=== PATIENT | female | born 1985 | race Caucasian/White ===

== ENCOUNTER 2018-11-01 18:37 | Emergency (ER) | payer OTHER, MEDICAID ==
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
[2018-11-01] MEDS ORDERED: IBUPROFEN 800 MG TABLET PO ONE (19:58)
[2018-11-01] MEDS ORDERED: CYCLOBENZAPRINE HCL 10 MG TABLET PO ONE (19:58)
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
[2018-11-01 20:19] VITALS: BP 143/97
== END 2018-11-01 20:20 | disposition home or self-care (01) ==
LOC: ER 18:37
DX: S16.1XXA Strain of muscle, fascia and tendon at neck level, initial encounter (principal); M54.2 Cervicalgia; M54.5 Low back pain; V43.62XA Car passenger injured in collision with other type car in traffic accident, initial encounter; W22.12XA Striking against or struck by front passenger side automobile airbag, initial encounter; F17.210 Nicotine dependence, cigarettes, uncomplicated
CPT/HCPCS: 99283; 72125; L0120

== ENCOUNTER 2019-05-07 17:56 | Inpatient (IN) | payer SELFPAY ==
[2019-05-07] MEDS ORDERED: METOCLOPRAMIDE HCL ORAL SOLN 10 MG/10 ML UDCUP PO ONE (18:19)
[2019-05-07] MEDS ORDERED: MAG HYDROX/AL HYDROX/SIMETH SUSP 30 ML UDCUP PO ONE (18:19)
[2019-05-07] MEDS ORDERED: LIDOCAINE 2% VISCOUS SOLN 20 ML UDCUP PO ONE (18:19)
--- NOTE | 2019-05-07 18:19 | ER Document Report ---
ED Medical Screen (RME) - General Chief Complaint: Chest Pain Stated Complaint: CHEST PAIN Time Seen by Provider: 05/07/19 18:17 Primary Care Provider: SONAL YEPEZ MD [Primary Care Provider] - Follow up as needed Mode of Arrival: Wheelchair Information source: Patient Notes: 34-year-old female presented to ED for complaint of chest pain midsternum through to the back. She states this started about an hour ago. She states she took something for what she thought was heartburn but it has not helped. Patient is alert oriented respirations regular nonlabored speaking in full sentences. She states she does not smoke drinks maybe once a month and no use of illicit drugs. She states she had a for her twins 5 years ago no other surgeries no medical history. TRAVEL OUTSIDE OF THE [place] IN LAST 30 DAYS: No - Related Data Allergies/Adverse Reactions: No Known Allergies Allergy (Verified 11/01/18 18:38) Past Medical History Renal/ Medical History: Denies: Hx Peritoneal Dialysis Psychiatric Medical History: Reports: Hx Depression Past Surgical History: Reports: Hx Section - Immunizations Hx Diphtheria, Pertussis, Tetanus Vaccination: Yes Physical Exam - Vital signs Vitals: Temp Pulse Resp BP Pulse Ox 98.4 F 112 H 26 H 149/96 H 97 05/07/19 18:14 05/07/19 18:14 05/07/19 18:14 05/07/19 18:14 05/07/19 18:14 Course - Vital Signs Vital signs: Temp Pulse Resp BP Pulse Ox 98.4 F 112 H 26 H 149/96 H 97 05/07/19 18:14 05/07/19 18:14 05/07/19 18:14 05/07/19 18:14 05/07/19 18:14 Doctor's Discharge - Discharge Referrals: SONAL YEPEZ MD [Primary Care Provider] - Follow up as needed
[2019-05-07] MEDS ORDERED: ASPIRIN 81 MG TABLET, CHEWABLE PO ONE (18:20)
--- NOTE | 2019-05-07 18:54 | RADIOLOGY REPORT (SQ) ---
EXAM DESCRIPTION: CHEST 2 VIEWS COMPLETED DATE/TIME: 05/07/2019 6:42 pm REASON FOR STUDY: Chest pain through to back COMPARISON: None. EXAM PARAMETERS: NUMBER OF VIEWS: two views TECHNIQUE: Digital Frontal and Lateral radiographic views of the chest acquired. RADIATION DOSE: NA LIMITATIONS: none FINDINGS: LUNGS AND PLEURA: No opacities, masses or pneumothorax. No pleural effusion. MEDIASTINUM AND HILAR STRUCTURES: No masses or contour abnormalities. HEART AND VASCULAR STRUCTURES: Heart normal size. No evidence for failure. BONES: No acute findings. HARDWARE: None in the chest. OTHER: No other significant finding. IMPRESSION: NO ACUTE RADIOGRAPHIC FINDING IN THE CHEST. TECHNICAL DOCUMENTATION: JOB ID: [id number] [employer]- All Rights Reserved Reading location - IP/workstation name: [email or web address]
[2019-05-07 19:29] LABS: ABSOLUTE BASOPHILS # (AUTO) 0.1 10^3/uL (0.0-0.2); ABSOLUTE EOSINOPHILS # (AUTO) 0.1 10^3/uL (0.0-0.6); ABSOLUTE LYMPHOCYTES (AUTO) 3.2 10^3/uL (0.5-4.7); ABSOLUTE MONOCYTES (AUTO) 0.9 10^3/uL (0.1-1.4); ABSOLUTE NEUT (AUTO) 13.6 10^3/uL (1.7-8.2); BASOPHILS % (AUTO) 0.6 % (0-2); EOSINOPHILS % (AUTO) 0.5 % (0-6); HEMATOCRIT 46.2 % (36.0-47.0); HEMOGLOBIN 15.8 g/dL (12.0-15.5); LYMPHOCYTES % (AUTO) 17.8 % (13-45); MEAN CORPUSCULAR HEMOGLOBIN 30.5 pg (27.0-33.4); MEAN CORPUSCULAR HGB CONC 34.2 g/dL (32.0-36.0); MEAN CORPUSCULAR VOLUME 89 fl (80-97); MONOCYTES % (AUTO) 5.2 % (3-13); PLATELET COUNT 410 10^3/uL (150-450); RED BLOOD COUNT 5.19 10^6/uL (3.72-5.28); RED CELL DISTRIBUTION WIDTH 13.5 % (11.5-14.0); SEGMENTED NEUTROPHILS % (AUTO) 75.9 % (42-78); TOTAL CELLS COUNTED % (AUTO) 100 %
[2019-05-07 19:36] LABS: ALKALINE PHOSPHATASE 77 U/L (38-126); ANION GAP 14 (5-19); ASPARTATE AMINO TRANSFERASE 28 U/L (14-36); BILIRUBIN,DIRECT 0.1 mg/dL (0.0-0.4); BILIRUBIN,TOTAL 0.3 mg/dL (0.2-1.3); BLOOD UREA NITROGEN 15 mg/dL (7-20); CALCIUM 10.5 mg/dL (8.4-10.2); CARBON DIOXIDE 24 mmol/L (22-30); CHLORIDE 105 mmol/L (98-107); GLUCOSE 106 mg/dL (75-110); TOTAL PROTEIN 9.2 g/dL (6.3-8.2)
[2019-05-07] MEDS ORDERED: NORMAL SALINE 1000 ML 1,000 ML IV ONE (20:07)
[2019-05-07] MEDS ORDERED: ONDANSETRON HCL INJ/PF 4 MG/2 ML SDV IV ONE (20:19)
[2019-05-07] MEDS ORDERED: HYDROMORPHONE HCL INJ/PF 2 MG/ML AMPULE IV ONE (20:19)
--- NOTE | 2019-05-07 20:24 | ER Document Report ---
ED General - General Chief Complaint: Chest Pain Stated Complaint: CHEST PAIN Time Seen by Provider: 05/07/19 18:17 Primary Care Provider: SONAL YEPEZ MD [NO LOCAL MD] - Follow up as needed Mode of Arrival: Wheelchair Information source: Patient TRAVEL OUTSIDE OF THE [place] IN LAST 30 DAYS: No - HPI Severity: Severe Relieved by: Denies Similar symptoms previously: No Notes: This is a 34-year-old female who presents to the emergency department complain ing of epigastric and right upper quadrant pain x2 hours. Patient states the pain started while she was eating dinner tonight. Patient states that she had her significant other get her something for heartburn ([place]arnie[place]) which did not help her symptoms. Patient states the pain is sharp and radiates into her back. Patient states that she has not had pain like this in the past and does not think it is her heartburn. Patient denies diaphoresis, chest pain, jaw pain, arm pain, dyspnea. Patient denies dysuria, hematuria. Differential diagnosis: Reflux esophagitis, biliary colic, cholecystitis, cholelithiasis, choledocholithiasis, peptic ulcer disease, pancreatitis, ACS, perforated peptic ulcer. Medical decision-making: Will treat the patient's pain, check CBC CMP, troponin, lipase, urine, urine , gallbladder ultrasound. - Related Data Allergies/Adverse Reactions: No Known Allergies Allergy (Verified 11/01/18 18:38) Past Medical History - General Information source: Patient - Social History Smoking Status: Never Smoker Frequency of alcohol use: None Drug Abuse: None Family History: Reviewed & Not Pertinent Patient has suicidal ideation: No Patient has homicidal ideation: No - Past Medical History Cardiac Medical History: Reports: None Pulmonary Medical History: Reports: None EENT Medical History: Reports: None Neurological Medical History: Reports: None Endocrine Medical History: Reports: None Renal/ Medical History: Reports: None. Denies: Hx Peritoneal Dialysis Malignancy Medical History: Reports: None GI Medical History: Reports: Hx Gastroesophageal Reflux Disease, Other Musculoskeletal Medical History: Reports None Skin Medical History: Reports None Psychiatric Medical History: Reports: Hx Depression Traumatic Medical History: Reports: None Infectious Medical History: Reports: None Past Surgical History: Reports: Hx Section - Immunizations Hx Diphtheria, Pertussis, Tetanus Vaccination: Yes Review of Systems - Review of Systems Constitutional: See HPI EENT: No symptoms reported Cardiovascular: No symptoms reported Gastrointestinal: See HPI Genitourinary: No symptoms reported Female Genitourinary: No symptoms reported Skin: No symptoms reported Hematologic/Lymphatic: No symptoms reported Neurological/Psychological: No symptoms reported -: Yes All other systems reviewed and negative Physical Exam - Vital signs Vitals: Temp Pulse Resp BP Pulse Ox 98.4 F 112 H 26 H 149/96 H 97 05/07/19 18:14 05/07/19 18:14 05/07/19 18:14 05/07/19 18:14 05/07/19 18:14 - Notes Notes: PHYSICAL EXAMINATION: GENERAL: Patient appears to be in acute distress secondary to abdominal pain. HEAD: Atraumatic, normocephalic. EYES: Pupils equal round and reactive to light, extraocular movements intact, sclera anicteric, conjunctiva are normal. ENT: nares patent, oropharynx clear without exudates. Moist mucous membranes. NECK: Normal range of motion, supple without lymphadenopathy LUNGS: Breath sounds clear to auscultation bilaterally and equal. No wheezes rales or rhonchi. HEART: Tachycardia without clicks, murmurs, rubs, gallops. ABDOMEN: Soft, tender to palpation right upper quadrant (positive Hunter sign), normoactive bowel sounds. No guarding, no rebound. No masses appreciated. EXTREMITIES: Normal range of motion, no pitting or edema. No cyanosis. NEUROLOGICAL: No focal neurological deficits. Moves all extremities spontaneously and on command. PSYCH: Anxious SKIN: Warm, Dry, normal turgor, no rashes or lesions noted. Course - Re-evaluation Re-evalutation: 05/07/19 21:34 Patient was reexamined by this MD at 2125 hrs. Patient was informed of the results of her lab work and gallbladder ultrasound. This MD recommended that a surgeon be consulted given the patient's elevated white count positive Hunter sign and gallbladder ultrasound findings. Patient states that she was agreeable to being seen by surgeon for further evaluation of her symptoms. was consulted at 2131 hours; he is currently in the OR but stated he would come see the pt in ED once he was done with surgery. - Vital Signs Vital signs: Temp Pulse Resp BP Pulse Ox 99.1 F 68 16 131/76 H 98 05/07/19 22:12 05/07/19 22:12 05/07/19 22:12 05/07/19 22:12 05/07/19 22:12 05/07/19 21:36 Vital signs reviewed by this MD. - Laboratory Result Diagrams: 05/07/19 19:10 05/07/19 19:10 Laboratory results interpreted by me: 05/07/19 05/07/19 05/07/19 19:10 19:10 22:20 WBC 18.0 H Hgb 15.8 H Absolute Neuts (auto) 13.6 H Calcium 10.5 H Total Protein 9.2 H Urine Protein 30 H Urine Ketones TRACE H Leukocyte Esterase Rfl SMALL H 05/07/19 21:36 Laboratory results reviewed by this MD. - Diagnostic Test Radiology reviewed: Reports reviewed - EKG Interpretation by Me Additional EKG results interpreted by me: 05/07/19 20:31 EKG performed on 05/07/2019 at 18/3 hours was interpreted by this MD. Findings: Patient has a sinus rhythm with a rate of 57, normal axis, pes preceding QRS complexes, QRS complexes appear narrow, there is no evidence of ST segment elevation or depression in a pattern to suggest acute ischemia or infarction. Impression sinus bradycardia with no overt acute abnormality seen - Consults DR. PAUL BAKER, SURGICALIST Time consulted: 21:31 Reason for consultation: 05/07/19 21:33 + HUNTER'S SIGN, WBC 18, +GALLSTONES ON U/S, +SONOGRAPHIC MURHPHY'S SIGN Consulted provider: will come to ER Discharge - Discharge Clinical Impression: Leukocytosis Cholelithiasis Qualifiers: Cholelithiasis location: gallbladder Cholecystitis acuity: acute Condition: Good Disposition: ADMITTED OBSERVATION Admitting Provider: SURGICALIST (SAMUEL) Unit Admitted: Surgical Floor Referrals: SONAL YEPEZ MD [NO LOCAL MD] - Follow up as needed
--- NOTE | 2019-05-07 20:26 | RADIOLOGY REPORT (SQ) ---
EXAM DESCRIPTION: US ABDOMEN LIMITED COMPLETED DATE/TME: 05/07/2019 18:21 CLINICAL HISTORY: 34 years, Female, Chest pain through to back COMPARISON: None. TECHNIQUE: Axial 2-D grayscale images of the abdomen were acquired. Doppler was utilized. LIMITATIONS: Suboptimal study secondary to extensive bowel gas artifact. FINDINGS: Pancreas is obscured secondary to overlying bowel gas artifact. The visualized portions of the pancreatic head appear normal. Proximal abdominal aorta measures 2.4 cm in AP diameter. The mid to distal abdominal aorta was obscured. Liver measures 15.7 cm in length. It appears normal in echogenicity. Antegrade flow is documented within the main portal vein. Gallbladder wall thickness measures 2 mm. Echogenic material is noted about the gallbladder lumen, several of which demonstrate posterior acoustic shadowing indicating cholelithiasis. Sonographic Hunter sign was positive. Common bile duct diameter measures 4 mm. Right kidney measures 11.4 x 5.3 x 5.5 cm in size. The right renal pelvis appears slightly dilated measuring 1.2 cm in diameter. IMPRESSION: Cholelithiasis/gallbladder sludge with positive sonographic Hunter sign, overall nonspecific in the absence of significant gallbladder wall thickening or common bile duct dilatation. If there is continued clinical concern for cholecystitis, consider HIDA scan. Slightly dilated right renal pelvis measuring 1.2 cm in diameter. copyright 2010 [employer]- All Rights Reserved
[2019-05-07 22:46] LABS: APPEARANCE,URINE TURBID; BILIRUBIN,URINE NEGATIVE (NEGATIVE); COLOR,URINE YELLOW; GLUCOSE, URINE NEGATIVE (NEGATIVE); KETONES,URINE TRACE mg/dL (NEGATIVE); PROTEIN,URINE 30 mg/dL (NEGATIVE); URINE SPECIFIC GRAVITY 1.025; UROBILINOGEN,URINE NEGATIVE mg/dL (<2.0)
[2019-05-07] MEDS ORDERED: POTASSI CL 20 MEQ/D5-1/2NS 1L 1,000 ML IV PRN (23:16)
[2019-05-07] MEDS ORDERED: ONDANSETRON HCL INJ/PF 4 MG/2 ML SDV IV PRN (23:16)
--- NOTE | 2019-05-07 23:16 | PDOC H&P ---
History of Present Illness Admission Date/PCP: SHARONA SUH MD right sided abdominal pain History of Present Illness: BALTAZAR BARRY is a 34 year old female This is a 34-year-old female who presents to the emergency department complaining of epigastric and right upper quadrant pain x2 hours. Patient states the pain started while she was eating dinner tonight. Patient states that she had her significant other get her something for heartburn (Marnie- Corona) which did not help her symptoms. Patient states the pain is sharp and radiates into her back. Patient states that she has not had pain like this in the past and does not think it is her heartburn. Patient denies diaphoresis, chest pain, jaw pain, arm pain, dyspnea. Patient denies dysuria, hematuria Past Medical History Cardiac Medical History: Reports: None Pulmonary Medical History: Reports: None Denies: Asthma, Bronchitis, Chronic Obstructive Pulmonary Disease (COPD), Intubation, Pneumonia, Respiratory Failure, Sleep Apnea, Tuberculosis, Other EENT Medical History: Reports: None Denies: Cataracts, Eyes, Ears, Nose, Throat, Other Neurological Medical History: Reports: None Denies: Hemorrhagic CVA, Ischemic CVA, Migraine, Multiple Sclerosis, Seizures, Other Endocrine Medical History: Reports: None Denies: Diabetes Mellitus Type 1, Diabetes Mellitus Type 2, Gestational Diabetes, Hyperthyroidism, Hypothyroidism, Obesity, Other Renal/ Medical History: Reports: None Denies: Chronic Kidney Disease, End Stage Renal Disease, Nephrolithiasis, Other Malignancy Medical History: Reports: None Denies: Bone Cancer, Brain Cancer, Breast Cancer, Cervical Cancer, Colorectal Cancer, Leukemia, Liver Cancer, Lung Cancer, Lymphoma, Ovarian Cancer, Pancreatic Cancer, Renal (Kidney) Cancer, Skin Cancer, Other GI Medical History: Reports: Gastroesophageal Reflux Disease, Other Denies: None, Cirrhosis, Crohn's Disease, Diverticulitis, Hepatitis, Hiatal Hernia, Peptic Ulcer Disease, Ulcerative Colitis Musculoskeltal Medical History: Reports: None Denies: Arthritis, Fibromyalgia, Gout, Other Skin Medical History: Reports: None Denies: Eczema, Psoriasis, Other Psychiatric Medical History: Reports: Depression Denies: None, Alcohol Dependency, Attention Deficit Hyperactivity Disorder, Bipolar Disorder, Dementia, General Anxiety Disorder, Personality Disorder, Post Traumatic Stress Disorder, Schizoaffective Disorder, Substance Abuse, Tobacco Dependency, Other Traumatic Medical History: Reports: None Infectious Medical History: Reports: None Past Surgical History Past Surgical History: Reports: Section Social History Smoking Status: Never Smoker Frequency of Alcohol Use: Occasional Hx Recreational Drug Use: No Family History Family History: Reviewed & Not Pertinent Parental Family History Reviewed: No Children Family History Reviewed: NA Sibling(s) Family History Reviewed.: NA Medication/Allergy Home Medications: Celecoxib 200 mg PO DAILY 05/27/16 Diazepam 5 mg PO Q6 PRN 05/27/16 Losartan Potassium 25 mg PO DAILY 05/27/16 Cephalexin Monohydrate [Keflex 500 mg Capsule] 500 mg PO TID #30 capsule 05/29/16 Fluconazole [Diflucan] 150 mg PO ONCE PRN #1 tablet 05/29/16 Oxycodone HCl/Acetaminophen [Percocet 5-325 mg Tablet] 2 tab PO Q4HP PRN #20 ta blet 05/29/16 Cyclobenzaprine HCl [Flexeril 5 mg Tablet] 5 mg PO TID #15 tablet 11/01/18 Ibuprofen [Motrin 800 mg Tablet] 800 mg PO TID #20 tablet 11/01/18 Oxycodone HCl/Acetaminophen [Percocet 5-325 mg Tablet] 1 tab PO ASDIR PRN #10 tablet 11/01/18 Allergies/Adverse Reactions: No Known Allergies Allergy (Verified 11/01/18 18:38) Review of Systems Constitutional: PRESENT: fatigue Eyes: ABSENT: as per HPI, visual disturbances, other Ears: ABSENT: as per HPI, hearing changes, other Nose, Mouth, and Throat: ABSENT: as per HPI, headache(s), mouth pain, sore throat, vertigo, other Cardiovascular: ABSENT: as per HPI, chest pain, dyspnea on exertion, edema, orthropnea, palpitations, other Respiratory: ABSENT: as per HPI, cough, dyspnea, hemoptysis, sputum, other Gastrointestinal: ABSENT: as per HPI, abdominal pain, bloating, coffee ground emesis, constipation, diarrhea, dysphagia, heartburn, hematemesis, hematochezia, melena, nausea, vomiting, other Musculoskeletal: ABSENT: as per HPI, back pain, deformity, joint swelling, muscle weakness, other Integumentary: ABSENT: as per HPI, diaphoresis, erythema, lesions, pruritus, rash, wounds, other Neurological: ABSENT: as per HPI, abnormal gait, abnormal movements, abnormal speech, confusion, convulsions, dizziness, focal weakness, frequent falls, lack of coordination, memory loss, numbness, paresthesias, restless legs, syncope, tingling, tremor(s), vertigo, weakness, other Psychiatric: ABSENT: as per HPI, anxiety, depression, hallucinations, homidical ideation, suicidal ideation, other Endocrine: ABSENT: as per HPI, cold intolerance, flushing, heat intolerance, menstrual abnormalities, polydipsia, polyphagia, polyuria, other Hematologic/Lymphatic: ABSENT: as per HPI, easy bleeding, easy bruising, lymphadenopathy, other Allergic/Immunologic: ABSENT: as per HPI, seasonal rhinorrhea, other Physical Exam Vital Signs: Temp Pulse Resp BP Pulse Ox 99.1 F 68 16 131/76 H 98 05/07/19 22:12 05/07/19 22:12 05/07/19 22:12 05/07/19 22:12 05/07/19 22:12 Intake & Output 05/06/19 05/07/19 05/08/19 06:59 06:59 06:59 Intake Total 1000 Balance 1000 Weight 77.111 kg General appearance: PRESENT: mild distress Head exam: PRESENT: normocephalic Eye exam: PRESENT: EOMI Ear exam: PRESENT: normal external ear exam Mouth exam: PRESENT: moist Neck exam: PRESENT: full ROM Respiratory exam: PRESENT: clear to auscultation so Cardiovascular exam: PRESENT: RRR Pulses: PRESENT: normal radial pulses, normal femoral pulses Vascular exam: PRESENT: normal capillary refill GI/Abdominal exam: PRESENT: soft Rectal exam: PRESENT: deferred Extremities exam: PRESENT: full ROM Musculoskeletal exam: PRESENT: full ROM Neurological exam: PRESENT: alert, awake, oriented to person, oriented to place Psychiatric exam: PRESENT: appropriate affect Skin exam: PRESENT: dry Results Laboratory Results: 05/07/19 19:10 05/07/19 19:10 05/07/19 05/07/19 05/07/19 19:10 19:10 19:10 WBC 18.0 H RBC 5.19 Hgb 15.8 H Hct 46.2 MCV 89 MCH 30.5 MCHC 34.2 RDW 13.5 Plt Count 410 Seg Neutrophils % 75.9 Sodium 142.6 Potassium 4.0 Chloride 105 Carbon Dioxide 24 Anion Gap 14 BUN 15 Creatinine 0.74 Est GFR ( Amer) > 60 Glucose 106 Calcium 10.5 H Total Bilirubin 0.3 AST 28 Alkaline Phosphatase 77 Total Protein 9.2 H Albumin 5.0 Lipase 121.6 Serum HCG, Qual Cancelled Urine Color Urine Appearance Urine pH Ur Specific [place] Urine Protein Urine Glucose (UA) Urine Ketones Urine Blood Urine RBC (Auto) 05/07/19 22:20 WBC RBC Hgb Hct MCV MCH MCHC RDW Plt Count Seg Neutrophils % Sodium Potassium Chloride Carbon Dioxide Anion Gap BUN Creatinine Est GFR ( Amer) Glucose Calcium Total Bilirubin AST Alkaline Phosphatase Total Protein Albumin Lipase Serum HCG, Qual Urine Color YELLOW Urine Appearance TURBID Urine pH 7.0 Ur Specific [place] 1.025 Urine Protein 30 H Urine Glucose (UA) NEGATIVE Urine Ketones TRACE H Urine Blood NEGATIVE Urine RBC (Auto) 10 05/07/19 19:10 Troponin I < 0.012 Impressions: Abdomen Ultrasound 05/07/19 18:21 IMPRESSION: Cholelithiasis/gallbladder sludge with positive sonographic Hunter sign, overall nonspecific in the absence of significant gallbladder wall thickening or common bile duct dilatation. If there is continued clinical concern for cholecystitis, consider HIDA scan. Slightly dilated right renal pelvis measuring 1.2 cm in diameter. copyright 2010 [employer]- All Rights Reserved Chest X-Ray 05/07/19 18:21 IMPRESSION: NO ACUTE RADIOGRAPHIC FINDING IN THE CHEST. Assessment & Plan - Diagnosis (1) Cholelithiasis Qualifiers: Cholelithiasis location: gallbladder Cholecystitis acuity: acute - Plan Summary Plan Summary: Impression biliary colic versus early cholecystitis with a white count of 18,000 Patient last ate a large meal about 6 hours ago. Admit the patient for IV antibiotics IV hydration plan laparoscopic cholecystectomy in the morning Risk benefits of procedure including bleeding infection pulmonary embolism stroke myocardial infarction and of been discussed risk of injury to adjacent organs including the small bowel: Hepatic vasculature hepatic ducts pancreas stomach have been discussed. Retained gallstones and/or missed gallstones of also been discussed ventral hernia after surgery has been discussed and pain after surgery has been discussed she understands and agrees to proceed
[2019-05-07] MEDS ORDERED: HYDROMORPHONE HCL INJ/PF 2 MG/ML AMPULE ONE (23:28)
[2019-05-07] MEDS ORDERED: CEFAZOLIN 1 GM/D5W RTU 1 GM/50 ML RTUPB IV ONE (23:30)
[2019-05-07] MEDS ORDERED: FAMOTIDINE INJ/PF 20 MG/2 ML SDV IV ONE (23:30)
[2019-05-08] MEDS: METRONIDAZOLE 500 MG/NS RTU 500 MG/100 ML RTUPB IV SCH ×4 (00:19→23:45)
[2019-05-08] MEDS ORDERED: CEFAZOLIN 1 GM/D5W RTU 2 GM/100 ML RTUPB IV ONE (00:40)
[2019-05-08] MEDS: HYDROMORPHONE HCL INJ/PF 2 MG/ML AMPULE IV PRN ×6 (02:58→23:56)
[2019-05-08 04:51] LABS: ABSOLUTE BASOPHILS # (AUTO) 0.1 10^3/uL (0.0-0.2); ABSOLUTE EOSINOPHILS # (AUTO) 0.1 10^3/uL (0.0-0.6); ABSOLUTE LYMPHOCYTES (AUTO) 3.5 10^3/uL (0.5-4.7); ABSOLUTE MONOCYTES (AUTO) 1.5 10^3/uL (0.1-1.4); ABSOLUTE NEUT (AUTO) 13.8 10^3/uL (1.7-8.2); BASOPHILS % (AUTO) 0.7 % (0-2); EOSINOPHILS % (AUTO) 0.4 % (0-6); HEMATOCRIT 42.7 % (36.0-47.0); HEMOGLOBIN 14.3 g/dL (12.0-15.5); LYMPHOCYTES % (AUTO) 18.4 % (13-45); MEAN CORPUSCULAR HGB CONC 33.6 g/dL (32.0-36.0); MEAN CORPUSCULAR VOLUME 89 fl (80-97); PLATELET COUNT 300 10^3/uL (150-450); RED BLOOD COUNT 4.78 10^6/uL (3.72-5.28); RED CELL DISTRIBUTION WIDTH 12.8 % (11.5-14.0); SEGMENTED NEUTROPHILS % (AUTO) 72.5 % (42-78); TOTAL CELLS COUNTED % (AUTO) 100 %; WHITE BLOOD COUNT 19.1 10^3/uL (4.0-10.5)
[2019-05-08 05:12] LABS: ANION GAP 6 (5-19); BLOOD UREA NITROGEN 11 mg/dL (7-20); CALCIUM 8.2 mg/dL (8.4-10.2); CARBON DIOXIDE 26 mmol/L (22-30); CHLORIDE 106 mmol/L (98-107); GLUCOSE 92 mg/dL (75-110)
[2019-05-08 05:31] LABS: POTASSIUM 3.8 mmol/L (3.6-5.0)
[2019-05-08] MEDS ORDERED: CEFAZOLIN 1 GM/D5W RTU 1 GM/50 ML RTUPB IV SCH (06:00)
[2019-05-08] MEDS ORDERED: BUPIVACAINE HCL 0.25 % INJ/PF (2.5 MG/1 ML) 30 ML VIAL ONE (07:45)
[2019-05-08] MEDS ORDERED: FENTANYL CITRATE INJ/PF 250 MCG/5 ML AMPULE ONE (08:30)
[2019-05-08] MEDS ORDERED: MIDAZOLAM 2 MG/2 ML INJ ONE (08:31)
[2019-05-08] MEDS ORDERED: DEXAMETHASONE SOD PHOSPHATE INJ 4 MG/1 ML VIAL ONE (08:31)
[2019-05-08] MEDS ORDERED: MORPHINE SULFATE 10 MG/ML INJ ONE (08:31)
[2019-05-08] MEDS ORDERED: ONDANSETRON HCL INJ/PF 4 MG/2 ML SDV ONE (08:31)
[2019-05-08] MEDS ORDERED: PROPOFOL INJ 200 MG/20 ML VIAL IV ONE (08:31)
[2019-05-08] MEDS ORDERED: FENTANYL CITRATE INJ/PF 100 MCG/2 ML AMPUL IV PRN ×3 (09:15)
[2019-05-08] MEDS ORDERED: PROMETHAZINE HCL INJ 25 MG/1 ML VIAL IV PRN ×2 (09:15)
[2019-05-08] MEDS ORDERED: MORPHINE SULFATE 10 MG/ML INJ IV PRN (09:15)
[2019-05-08] MEDS ORDERED: DIPHENHYDRAMINE HCL 50 MG/ML VIAL IV PRN (09:15)
[2019-05-08] MEDS ORDERED: MEPERIDINE HCL/PF INJ 25 MG/1 ML DISP.SYRIN IV PRN (09:15)
[2019-05-08] MEDS ORDERED: INFLUENZA QUAD (6MOS+) 2019-20 VAC 0.5 ML SYR IM ONE (10:00)
[2019-05-08] MEDS ORDERED: ACETAMINOPHEN 1,000 MG/100 ML RTUPB IV ONE (10:32)
--- NOTE | 2019-05-08 10:35 | Operative Report ---
Operative Report DATE OF SURGERY: 05/08/19 PREOPERATIVE DIAGNOSIS: Acute cholecystitis. Cholelithiasis POSTOPERATIVE DIAGNOSIS: Same OPERATION: Laparoscopic cholecystectomy SURGEON: MALIHA MIRANDA ANESTHESIA: GA TISSUE REMOVED OR ALTERED: Gallbladder COMPLICATIONS: None ESTIMATED BLOOD LOSS: 40 cc QUANTITATIVE BLOOD LOSS: 40 INTRAOPERATIVE FINDINGS: Acute cholecystitis PROCEDURE: Patient was placed in supine position and after adequate general anesthesia the abdomen was then prepped and draped in the usual sterile fashion. Appropriate timeout was then called. An infraumbilical incision was made in the fascia identified and grasped with [place] clamps on each side and the midline divided. The opening was then enlarged to the hemostat and 2 sutures of [address] on each side of the trocar and the trochars were removed. The stay sutures were lifted up and the abdominal cavity was then finger palpated and no adhesions underneath. Next a Pang trocar was then inserted and CO2 insufflated through the trocar to a pressure of about 15 mmHg. 3 other trochars were then placed under direct vision a 12 mm in the subxiphoid and two 5 mm in the right upper quadrant. Gallbladder was noted to be tense and this was then decompressed with a long nee dle. The fundus of the gallbladder was then grasped and pulled over the liver. Omental adhesion was then bluntly pulled over the liver. The gallbladder noted to be edematous. The infundibulum was then grasped and the cystic duct dissected as well as the cystic artery and after the angle of safety identified the cystic duct was then clipped with hemoclips and divided between the proximal and distal clips. Cystic artery was then clipped and divided with the use of harmonic kandy between the clip in the gallbladder. The gallbladder was then dissected off the liver bed. Most of the gallbladder was actually peeled off from the liver and there was some oozing noted. The gallbladder was then removed completely and put an Endobag and pulled out through the umbilical port. The Pang trochars were then placed back and the gallbladder liver bed was then inspected there is a little oozing noted and this was controlled with a couple of pieces of Surgicel. A drain was then placed through the right lower most trocar site and placed over the gallbladder bed area. No maricarmen active bleeding however was noted. Next the drain was then anchored to this to the skin with 2-0 nylon. This all the trochars were then removed and CO2 allowed to come out through the trocar sites. The fascial defect in the infraumbilical area was then closed with a [id number] suture using 0 Vicryl and the 2 stay sutures tied together for better closure. All the incisions were closed with running subcuticular 4-0 Vicryl undyed. Steri-Strips placed over the operative sites. Needle instrument sponge count were all correct and estimated blood loss about 40 cc. Local anesthesia infiltrated over the incision sites. Patient tolerated procedure well and brought to recovery room extubated in satisfactory condition.
[2019-05-08] MEDS: FAMOTIDINE INJ/PF 20 MG/2 ML SDV IV SCH ×2 (10:36→22:30)
[2019-05-08] MEDS: OXYCODONE-ACETAMINOPHEN 5-325 MG TABLET PO PRN ×3 (13:14→22:29)
[2019-05-08] MEDS: RINGERS SOLUTION,LACTATED 1,000 ML IV PRN ×2 (13:35→20:02)
[2019-05-08] MEDS ORDERED: CEFAZOLIN SODIUM 1 GM in DEXTROSE 5%-WATER 50 ML IV SCH (14:00)
[2019-05-08] MEDS ORDERED: SUCCINYLCHOLINE CHLORIDE INJ 200 MG/10 ML VIAL ONE (14:08)
[2019-05-08] MEDS ORDERED: ROCURONIUM BROMIDE INJ 50 MG/5 ML VIAL IV ONE (14:08)
[2019-05-08] MEDS: CEFAZOLIN SODIUM 2 GM in DEXTROSE 5%-WATER 100 ML IV SCH ×2 (14:30→22:30)
[2019-05-08] MEDS: ONDANSETRON HCL INJ/PF 4 MG/2 ML SDV IV PRN ×2 (17:48→23:55)
[2019-05-09] MEDS: OXYCODONE-ACETAMINOPHEN 5-325 MG TABLET PO PRN ×2 (03:16→08:35)
[2019-05-09] MEDS: RINGERS SOLUTION,LACTATED 1,000 ML IV PRN (03:17)
[2019-05-09] MEDS: CEFAZOLIN SODIUM 2 GM in DEXTROSE 5%-WATER 100 ML IV SCH (05:59)
[2019-05-09] MEDS: HYDROMORPHONE HCL INJ/PF 2 MG/ML AMPULE IV PRN (05:59)
[2019-05-09] MEDS: ONDANSETRON HCL INJ/PF 4 MG/2 ML SDV IV PRN (06:00)
[2019-05-09] MEDS: METRONIDAZOLE 500 MG/NS RTU 500 MG/100 ML RTUPB IV SCH (08:36)
[2019-05-09 10:08] LABS: ABSOLUTE BASOPHILS # (AUTO) 0.1 10^3/uL (0.0-0.2); ABSOLUTE MONOCYTES (AUTO) 0.9 10^3/uL (0.1-1.4); ABSOLUTE NEUT (AUTO) 10.8 10^3/uL (1.7-8.2); BASOPHILS % (AUTO) 0.5 % (0-2); EOSINOPHILS % (AUTO) 0.2 % (0-6); HEMATOCRIT 35.5 % (36.0-47.0); LYMPHOCYTES % (AUTO) 14.6 % (13-45); MEAN CORPUSCULAR HEMOGLOBIN 30.1 pg (27.0-33.4); MEAN CORPUSCULAR VOLUME 89 fl (80-97); MONOCYTES % (AUTO) 6.4 % (3-13); PLATELET COUNT 279 10^3/uL (150-450); RED BLOOD COUNT 4.01 10^6/uL (3.72-5.28); RED CELL DISTRIBUTION WIDTH 13.1 % (11.5-14.0); SEGMENTED NEUTROPHILS % (AUTO) 78.3 % (42-78); TOTAL CELLS COUNTED % (AUTO) 100 %; WHITE BLOOD COUNT 13.7 10^3/uL (4.0-10.5)
[2019-05-09 10:10] LABS: HEMOGLOBIN 12.1 g/dL (12.0-15.5)
[2019-05-09 10:18] VITALS: BP 138/81
--- NOTE | 2019-05-09 13:26 | PDOC DISCHARGE SUMMARY ---
General - Admit/Disc Date/PCP Admission Date/Primary Care Provider: 05/07/19 23:27 SHARONA SUH MD Discharge Date: 05/09/19 - Discharge Diagnosis Final Diagnosis: Acute calculus cholecystitis 2 psoriatic arthritis 3 hypertension - Additional Information Resuscitation Status: Full Code Discharge Diet: As Tolerated, Regular Discharge Activity: Activity As Tolerated, No Lifting Over 10 Pounds Referrals: [facility] [Provider Group] (2 weeks) Home Medications: No Home Medications 05/08/19 History of Present Illiness History of Present Illness: BALTAZAR BARRY is a 34 year old female admitted on 05/07/2019 for right upper quadrant abdominal pains. She had an ultrasound which showed gallstones tenderness in the right upper upper quadrant. Her white count was elevated and tender in the right upper quadrant. Hospital Course Hospital Course: Patient was admitted on 05/07/2019 for acute calculus cholecystitis. She then underwent laparoscopic cholecystectomy on 05/08/[address] Higgins. Postoperatively she did very well and discharged improved on 05/09/2019 for acute calculus cholecystitis and psoriatic arthritis. Patient was seen by medicine for other comorbidities including psoriatic arthritis. Note was given for her to go back to work in 2 weeks. She will see us in the surgical clinic in 2 weeks for final checkup. Physical Exam Vital Signs: Temp Pulse Resp BP Pulse Ox 98.8 F 73 12 138/81 H 100 05/09/19 10:14 05/09/19 10:14 05/09/19 10:14 05/09/19 10:14 05/09/19 10:14 Intake & Output 05/08/19 05/09/19 05/10/19 06:59 06:59 06:59 Intake Total 1150 5510 Output Total 730 Balance 1150 3460 Weight 77.1 kg 83 kg Exam: On admission she did have tenderness in the right upper quadrant Results Laboratory Results: WBC 13.7 10^3/uL (4.0-10.5) H 05/09/19 09:27 RBC 4.01 10^6/uL (3.72-5.28) 05/09/19 09:27 Hgb 12.1 g/dL (12.0-15.5) D 05/09/19 09:27 Hct 35.5 % (36.0-47.0) L 05/09/19 09:27 MCV 89 fl (80-97) 05/09/19 09:27 MCH 30.1 pg (27.0-33.4) 05/09/19 09:27 MCHC 34.0 g/dL (32.0-36.0) 05/09/19 09:27 RDW 13.1 % (11.5-14.0) 05/09/19 09:27 Plt Count 279 10^3/uL (150-450) 05/09/19 09:27 Lymph % (Auto) 14.6 % (13-45) 05/09/19 09:27 [place] % (Auto) 6.4 % (3-13) 05/09/19 09:27 Eos % (Auto) 0.2 % (0-6) 05/09/19 09: Baso % (Auto) 0.5 % (0-2) 05/09/19 09:27 Absolute Neuts (auto) 10.8 10^3/uL (1.7-8.2) H 05/09/19 09:27 Absolute Lymphs (auto) 2.0 10^3/uL (0.5-4.7) 05/09/19 09:27 Absolute Monos (auto) 0.9 10^3/uL (0.1-1.4) 05/09/19 09:27 Absolute Eos (auto) 0.0 10^3/uL (0.0-0.6) 05/09/19 09:27 Absolute Basos (auto) 0.1 10^3/uL (0.0-0.2) 05/09/19 09:27 Seg Neutrophils % 78.3 % (42-78) H 05/09/19 09:27 Sodium 138.2 mmol/L (137-145) 05/08/19 04:36 Potassium 3.8 mmol/L (3.6-5.0) 05/08/19 04:36 Chloride 106 mmol/L (98-107) 05/08/19 04:36 Carbon Dioxide 26 mmol/L (22-30) 05/08/19 04:36 Anion Gap 6 (5-19) 05/08/19 04:36 BUN 11 mg/dL (7-20) 05/08/19 04:36 Creatinine 0.52 mg/dL (0.52-1.25) 05/08/19 04:36 Est GFR ( Amer) > 60 (>60) 05/08/19 04:36 Est GFR (MDRD) Non-Af > 60 (>60) 05/08/19 04:36 Glucose 92 mg/dL (75-110) 05/08/19 04:36 Calcium 8.2 mg/dL (8.4-10.2) L 05/08/19 04:36 Total Bilirubin 0.3 mg/dL (0.2-1.3) 05/07/19 19:10 Direct Bilirubin 0.1 mg/dL (0.0-0.4) 05/07/19 19:10 Neonat Total Bilirubin Not Reportable 05/07/19 19:10 Neonat Direct Bilirubin Not Reportable 05/07/19 19:10 Neonat Indirect Bili Not Reportable 05/07/19 19:10 AST 28 U/L (14-36) 05/07/19 19:10 ALT 20 U/L (<35) 05/07/19 19:10 Alkaline Phosphatase 77 U/L (38-126) 05/07/19 19:10 Troponin I < 0.012 ng/mL 05/07/19 19:10 Total Protein 9.2 g/dL (6.3-8.2) H 05/07/19 19:10 Albumin 5.0 g/dL (3.5-5.0) 05/07/19 19:10 Lipase 121.6 U/L (23-300) 05/07/19 19:10 Serum HCG, Qual Cancelled 05/07/19 19:10 Beta HCG, Quant < 2.39 mIU/mL (0.0-6.15) 05/07/19 19:10 Total Beta HCG NEGATIVE (NEGATIVE) 05/07/19 19:10 Urine Color YELLOW 05/07/19 22:20 Urine Appearance TURBID 05/07/19 22:20 Urine pH 7.0 (5.0-9.0) 05/07/19 22:20 Ur Specific [place] 1.025 05/07/19 22:20 Urine Protein 30 mg/dL (NEGATIVE) H 05/07/19 22:20 Urine Glucose (UA) NEGATIVE mg/dL (NEGATIVE) 05/07/19 22:20 Urine Ketones TRACE mg/dL (NEGATIVE) H 05/07/19 22:20 Urine Blood NEGATIVE (NEGATIVE) 05/07/19 22:20 Urine Nitrite (Reflex) NEGATIVE (NEGATIVE) 05/07/19 22:20 Urine Bilirubin NEGATIVE (NEGATIVE) 05/07/19 22:20 Urine Urobilinogen NEGATIVE mg/dL (<2.0) 05/07/19 22:20 Leukocyte Esterase Rfl SMALL (NEGATIVE) H 05/07/19 22:20 Urine RBC (Auto) 10 /HPF 05/07/19 22:20 Urine Bacteria (Auto) 1+ /HPF 05/07/19 22:20 Squamous Epi Cells Auto 12 /HPF 05/07/19 22:20 Urine Mucus (Auto) OCC /LPF 05/07/19 22:20 Urine Ascorbic Acid NEGATIVE (NEGATIVE) 05/07/19 22:20 05/07/19 19:10 Troponin I < 0.012 Impressions: Abdomen Ultrasound 05/07/19 18:21 IMPRESSION: Cholelithiasis/gallbladder sludge with positive sonographic Hunter sign, overall nonspecific in the absence of significant gallbladder wall thickening or common bile duct dilatation. If there is continued clinical concern for cholecystitis, consider HIDA scan. Slightly dilated right renal pelvis measuring 1.2 cm in diameter. copyright 2010 [employer]- All Rights Reserved Chest X-Ray 05/07/19 18:21 IMPRESSION: NO ACUTE RADIOGRAPHIC FINDING IN THE CHEST. Plan Plan of Treatment: Laparoscopic cholecystectomy on 05/08/2019. The plan is for her to avoid any lifting for more than 10 pounds for the next 2 weeks and to be followed up in the clinic in 2 weeks.
--- NOTE | 2019-05-09 17:09 | EKG REPORT ---
SEVERITY:- NORMAL ECG - SINUS RHYTHM : Confirmed by: Benji Pfeiffer MD 09-May-2019 17:08:52
== END 2019-05-09 11:00 | disposition home or self-care (01) | DRG 419 ==
LOC: ER 17:56 → EH 23:27 → OBSVTOIN 23:27 → 5 05-08 00:05
PROVIDERS: ADMIT Surgery; ATTEND Surgery
PROC: 0FT44ZZ Resection of Gallbladder, Percutaneous Endoscopic Approach (ICD-10-PCS; principal; 2019-05-08 08:30)
PROC: 3E0234Z Introduction of Serum, Toxoid and Vaccine into Muscle, Percutaneous Approach (ICD-10-PCS; 2019-05-09)
DX: K80.00 Calculus of gallbladder with acute cholecystitis without obstruction (principal); I10 Essential (primary) hypertension; L40.50 Arthropathic psoriasis, unspecified; K21.9 Gastro-esophageal reflux disease without esophagitis; F32.9 Major depressive disorder, single episode, unspecified; Z23 Encounter for immunization
CPT/HCPCS: 36415; 71046; 76705; 80048; 80053; 81001; 83690; 84484; 84702; 85025; 88304; 90686; 93005; 93010; 96361; 96374; 96375; 96376; 99285; J0131; J0330; J0690; J1100; J1170; J2250; J2270; J2405; J2704; J3010; J3480; J3490; J7030; J7060; J7120; S0028